=== PATIENT | male | born 1945 | race Two or more races ===

== ENCOUNTER 2023-12-02 16:27 | Emergency (ER) | payer OTHER ==
[~2023-12-02] VITALS: Ht 182.9 cm; Wt 77.5 kg
[2023-12-02 21:21] VITALS: BP 133/69; PULSE 80; RESP 16; TEMP 98.5; O2SAT 97
== END 2023-12-02 21:36 | disposition home or self-care (01) ==
LOC: ER 16:27
DX: H11.31 Conjunctival hemorrhage, right eye (principal); I10 Essential (primary) hypertension

== ENCOUNTER 2024-06-01 14:41 | Emergency (ER) | payer OTHER ==
[~2024-06-01] VITALS: Ht 182.9 cm; Wt 74.0 kg
[2024-06-01 15:42] LABS: Basophils # (auto) 0 10 ^3/uL (0-0.2); Basophils % (auto) 0.2 % (0.0-2.0); Eosinophils # (auto) 0.1 10 ^3/uL (0-0.8); Eosinophils % (auto) 1.2 % (0.0-7.0); Hematocrit 46.9 % (41.0-53.0); Hemoglobin 16.3 g/dL (13.5-17.5); Lymphocytes # (auto) 2.3 10 ^3/uL (0.4-5.4); Lymphocytes % (auto) 21.5 % (10.0-50.0); Mean Corpuscular Hemoglobin 29.8 pg (28.0-32.0); Mean Corpuscular Hgb Conc. 34.8 g/dL (32.0-36.0); Mean Corpuscular Volume 85.8 fL (80.0-100.0); Monocytes # (auto) 0.7 10 ^3/uL (0-1.3); Monocytes % (auto) 6.1 % (0.0-12.0); Neutrophils # (auto) 7.6 10 ^3/uL (1.6-8.6); Nucleated Red Blood Cells % 0.3 %; Platelet Count (auto) 180 10^3/uL (140-450); Red Blood Cells 5.46 10^6/uL (4.5-5.90); Red Cell Distribution Width 13.9 % (11.8-14.3); White Blood Cell 10.7 10^3/uL (4.4-10.8)
[2024-06-01 15:44] LABS: Chloride 92 mmol/L (98-107); Potassium 3.7 mmol/L (3.5-5.1); Sodium 129 mmol/L (136-145)
[2024-06-01 15:45] LABS: Anion Gap 7 (5-15); Calcium 10.2 mg/dL (8.7-10.4); Carbon Dioxide 30 mmol/L (20-31)
[2024-06-01 15:50] LABS: BUN/Creatinine Ratio 20.5 (10.0-20.0); Blood Urea Nitrogen 35 mg/dL (9-23)
[2024-06-01 15:54] LABS: Glucose 478 mg/dL (74-106)
[2024-06-01 16:16] LABS: Urine Bacteria None Seen /hpf (None Seen)
[2024-06-01 16:44] LABS: Urine Blood Negative /uL (Negative); Urine Clarity Clear (Clear); Urine Color Light-Yellow (Yellow); Urine Protein, UAD Negative (Negative); Urine Specific Gravity 1.024 (1.001-1.035); Urine Urobilinogen Normal (Negative); Urine WBC <1 /hpf (0 - 3); Urine pH 5.5 (5.0-9.0)
[2024-06-01] MEDS: SODIUM CHLORIDE 0.9% 1,000 ML IV ONE (18:18)
[2024-06-01] MEDS: InsuLIN REG 1unit/0.01ml Soln (100units/ml) IV ONE (18:19)
[2024-06-01 18:20] VITALS: BP 130/71; PULSE 84; RESP 16; TEMP 98; O2SAT 96
== END 2024-06-01 18:54 | disposition home or self-care (01) ==
LOC: ER 14:41
DX: E11.65 Type 2 diabetes mellitus with hyperglycemia (principal); I10 Essential (primary) hypertension
CPT/HCPCS: 36415; 80048; 81001; 82962; 84484; 85025; 96361; 96374; 99283; J1815; J7030

== ENCOUNTER 2024-06-02 20:43 | Emergency (ER) | payer OTHER ==
[~2024-06-02] VITALS: Ht 182.9 cm; Wt 75.5 kg
[2024-06-02 21:24] LABS: Urine Bacteria None Seen /hpf (None Seen); Urine WBC None Seen /hpf (0 - 3)
[2024-06-02 21:34] LABS: Basophils # (auto) 0 10 ^3/uL (0-0.2); Basophils % (auto) 0.3 % (0.0-2.0); Eosinophils # (auto) 0.2 10 ^3/uL (0-0.8); Eosinophils % (auto) 2.3 % (0.0-7.0); Hematocrit 44.7 % (41.0-53.0); Hemoglobin 15.6 g/dL (13.5-17.5); Lymphocytes # (auto) 2.6 10 ^3/uL (0.4-5.4); Lymphocytes % (auto) 26.6 % (10.0-50.0); Mean Corpuscular Hemoglobin 29.6 pg (28.0-32.0); Mean Corpuscular Hgb Conc. 34.8 g/dL (32.0-36.0); Mean Corpuscular Volume 85.1 fL (80.0-100.0); Monocytes # (auto) 0.7 10 ^3/uL (0-1.3); Monocytes % (auto) 7.5 % (0.0-12.0); Neutrophils # (auto) 6.1 10 ^3/uL (1.6-8.6); Neutrophils % (auto) 63.3 % (37.0-80.0); Nucleated Red Blood Cells % 0.1 %; Platelet Count (auto) 174 10^3/uL (140-450); Red Blood Cells 5.26 10^6/uL (4.5-5.90); White Blood Cell 9.6 10^3/uL (4.4-10.8)
[2024-06-02 21:46] LABS: Chloride 97 mmol/L (98-107); Potassium 3.3 mmol/L (3.5-5.1); Sodium 128 mmol/L (136-145)
[2024-06-02 21:47] LABS: Anion Gap 6 (5-15); Carbon Dioxide 25 mmol/L (20-31)
[2024-06-02 21:48] LABS: Calcium 9.4 mg/dL (8.7-10.4)
[2024-06-02 21:52] LABS: Urine Blood Negative /uL (Negative); Urine Clarity Clear (Clear); Urine Color Light-Yellow (Yellow); Urine Protein, UAD Negative (Negative); Urine Specific Gravity 1.013 (1.001-1.035); Urine Urobilinogen Normal (Negative); Urine pH 5.5 (5.0-9.0)
[2024-06-02 22:05] LABS: Glucose 422 mg/dL (74-106)
[2024-06-02 22:06] LABS: BUN/Creatinine Ratio 18.6 (10.0-20.0); Blood Urea Nitrogen 32 mg/dL (9-23)
[2024-06-02] MEDS ORDERED: InsuLIN REG 1unit/0.01ml Soln (100units/ml) IV ONE (23:00)
[2024-06-03] MEDS: SODIUM CHLORIDE 0.9% 1,000 ML IV ONE ×2 (00:30→14:21)
[2024-06-03] MEDS: InsuLIN REG 1unit/0.01ml Soln (100units/ml) IV ONE (00:45)
[2024-06-03 08:22] VITALS: PULSE 87; RESP 18; TEMP 98.5; O2SAT 98
[2024-06-03] MEDS ORDERED: DEXTROSE (50%) 50ML SYRG IV PRN (09:30)
[2024-06-03] MEDS ORDERED: hydrALAZINE HCL 20 MG/ML VL IV PRN (09:30)
[2024-06-03] MEDS ORDERED: GLIP5TAB21 PO (10:04)
[2024-06-03] MEDS ORDERED: HYDR25TA5 PO (10:04)
[2024-06-03] MEDS ORDERED: CLON0.2T PO (10:04)
[2024-06-03] MEDS ORDERED: METF-370 PO (10:04)
[2024-06-03] MEDS ORDERED: METO1TAB9 PO (10:04)
[2024-06-03] MEDS ORDERED: LEVO100T8 PO (10:04)
[2024-06-03] MEDS ORDERED: RIV15T PO (10:04)
[2024-06-03 10:21] LABS: Chloride 100 mmol/L (98-107); Potassium 3.4 mmol/L (3.5-5.1); Sodium 136 mmol/L (136-145)
[2024-06-03 10:22] LABS: Anion Gap 8 (5-15); Calcium 9.4 mg/dL (8.7-10.4); Carbon Dioxide 28 mmol/L (20-31)
[2024-06-03] MEDS: METOPROLOL SUCCINATE XL 50 MG TAB PO ONE (10:24)
[2024-06-03 10:27] LABS: BUN/Creatinine Ratio 18.5 (10.0-20.0); Blood Urea Nitrogen 24 mg/dL (9-23); Glucose 260 mg/dL (74-106)
[2024-06-03] MEDS: cloNIDine HCL 0.1 MG TAB PO SCH (10:35)
[2024-06-03] MEDS: POTASSIUM CHL 20MEQ/100ML 100 ML IV ONE (10:35)
[2024-06-03] MEDS: amLODIPine BESYLATE 5 MG TAB PO SCH (10:36)
[2024-06-03] MEDS: glipiZIDE 5 MG TAB PO SCH (10:38)
[2024-06-03] MEDS: INSULIN LANTUS (GLARGINE) 1 /0.01ml (100units/ml) SC SCH (10:39)
[2024-06-03] MEDS: ACCU-CHEK COMFORT CURVE STRIP VI SCH (12:30)
[2024-06-03] MEDS: InsuLIN REG 1unit/0.01ml Soln (100units/ml) SC SCH (12:34)
[2024-06-03] MEDS ORDERED: LISI40TA16 PO (13:32)
[2024-06-03 14:01] VITALS: BP 146/76; PULSE 49; RESP 16; O2SAT 99
[2024-06-03] MEDS: ACCU-CHEK COMFORT CURVE STRIP VI ONE (14:21)
[2024-06-03] MEDS: POTASSIUM EFFERVESENT TAB 25 MEQ PO ONE (14:26)
[2024-06-04] MEDS ORDERED: LEVOTHYROXINE SODIUM 88 MCG TAB PO SCH (07:00)
== END 2024-06-03 14:46 | disposition home or self-care (01) ==
LOC: ER 20:43
DX: E11.65 Type 2 diabetes mellitus with hyperglycemia (principal); I10 Essential (primary) hypertension
CPT/HCPCS: 36415; 71045; 80048; 81001; 82962; 83036; 84443; 84484; 85025; 96361; 96374; 99285; J1815; J3480; J7030